=== PATIENT | female | born 1985 | race Caucasian/White ===

== ENCOUNTER 2018-03-11 20:40 | Inpatient (IN) ==
[2018-03-11 22:53] LABS: Baso # (Auto) 0.1 th/mm3 (0.0-0.2); Baso % (Auto) 0.4 % (0.0-2.0); Eos # (Auto) 0.1 th/mm3 (0.0-0.4); Eos % (Auto) 0.5 % (0.0-4.0); Hematocrit 36.5 % (35.0-46.0); Hemoglobin 12.5 gm/dL (11.6-15.3); Lymph # (Auto) 2.9 th/mm3 (1.0-4.8); Lymph % (Auto) 22.4 % (9.0-44.0); Mean Corpuscular HGB Conc 34.2 % (32.0-36.0); Mean Corpuscular Hemoglobin 29.8 pg (27.0-34.0); Mean Corpuscular Volume 87.3 fL (80.0-100.0); Mean Platelet Volume 9.2 fL (7.0-11.0); Mono # (Auto) 1.1 th/mm3 (0.0-0.9); Mono % (Auto) 8.8 % (0.0-8.0); Neut # (Auto) 8.8 th/mm3 (1.8-7.7); Neut % (Auto) 67.9 % (16.0-70.0); Platelet Count 215 th/mm3 (150-450); Red Blood Count 4.18 mil/mm3 (4.00-5.30); Red Cell Distribution Width 13.8 % (11.6-17.2)
[2018-03-11] MEDS ORDERED: Sod Chloride 0.9% Inj 1,000 ML IRRIGATION PRN (22:53)
[2018-03-11] MEDS ORDERED: Zolpidem Tartrate 5 MG Tablet PO PRN (23:11)
[2018-03-11] MEDS ORDERED: fentaNYL Citrate Inj 100 MCG/2 ML Ampul IV.PUSH PRN ×2 (23:12)
[2018-03-11] MEDS ORDERED: Naloxone Inj 0.4 MG/ML Vial IV.PUSH PRN (23:12)
[2018-03-11] MEDS ORDERED: Oxytocin 30 Units/500ml Premix 30 UNITS/500 ML BAG IV.SIG ONE (23:12)
[2018-03-11] MEDS ORDERED: Sodium Chlor 0.9% Inj 500 ML IV.SIG PRN (23:12)
[2018-03-11] MEDS ORDERED: Sod Chloride 0.9% Inj 1,000 ML IV.CONT PRN (23:12)
[2018-03-11 23:14] LABS: Amphetamine Urine With Conf Neg (Neg); Benzodiazepine Urine With Conf Neg (Neg)
[2018-03-11] MEDS ORDERED: Citric Acid/Sodium Citrate Liq 30 ML UDC PO SCH (23:15)
[2018-03-11 23:25] LABS: Bilirubin,Urine Negative (Negative); Clarity,Urine Clear (Clear); Color,Urine Yellow (Yellw/Straw); Glucose,Urine (UA) Negative (Negative); Leukocyte Esterase,Urine Negative (Negative); Mucus,Urine Few /lpf (Occasional); Nitrite,Urine Negative (Negative); Specific Gravity,Urine 1.012 (1.002-1.035); Squamous Epithelial Cell,Urine 1 /hpf (0-5)
--- NOTE | 2018-03-12 06:57 | P.OBGPN ---
S: Doing well, pain with contractions, no vaginal bleeding or loss of fluid. O: VS: Exam: /-3, AROM, clear fluid. FHTs: 120s, moderate variability, accelerations present, no decelerations TOCO: Contractions every 3-5 minutes A/P 32 yo at 39w2d by L/19w US (TAVIA 03/17/18) here for IOL for logisical reasons due to remoteness from hospital and concern for IUGR. 1. IUP: Category 1 tracing. Continuous monitoring -Cephalic, GBS negative, placenta posterior. - Female "Gaby" 2. Induction of labor: Received 1 dose of PV Miso, AROM this check, Pitocin as needed, anticipate vaginal delivery. 3. IUGR??: EFW on 02/15 = total EFW of 24% and AC of 4%, today (03/01) EFW = 2852g (37%) AC 8%, Normal UA dop - based on logistics of patient's living situation and childcare issues and concerns for IUGR plan was made for IOL. 4. Rh neg: s/p Rhogam around 28 weeks, 12/25/17. Per protocol . 5. HSIL pap: (10/24/17), colpo on w/ bx at 5 oclock on 11/06 = ABE 2-3, plan for either LEEP or repeat colpo at 6w PP 6. H/O Hep C: s/p treatment.
[2018-03-12] MEDS ORDERED: Oxytocin 30 Units/500ml Premix 30 UNITS/500 ML BAG IV.SIG PRN (06:58)
[2018-03-12] MEDS ORDERED: fentaNYL Citrate Inj 100 MCG/2 ML Ampul EPIDURAL ONE (09:00)
[2018-03-12] MEDS ORDERED: Prenatal Vit/Ca/Iron/Folic Acid Tablet PO SCH (09:00)
[2018-03-12] MEDS ORDERED: fentaNYL 2MCG-Bupiv 0.125% Epi 150 ML EPIDURAL PRN (09:00)
[2018-03-12] MEDS ORDERED: Naloxone Inj 0.4 MG/ML Vial IV.PUSH PRN (14:18)
[2018-03-12] MEDS ORDERED: Benzocaine 20% Top Spray 60 ML Can TOPICAL PRN (14:18)
[2018-03-12] MEDS ORDERED: Witch Hazel 50%/Glyderin 12.5% 40 Pad Jar RECTAL PRN (14:18)
[2018-03-12] MEDS ORDERED: Bisacodyl 10 MG Supp RECTAL PRN (14:18)
[2018-03-12] MEDS ORDERED: Zolpidem Tartrate 5 MG Tablet PO PRN (14:18)
--- NOTE | 2018-03-12 14:28 | P.OBDELI ---
Additional Information: Preoperative diagnosis: 1. Intrauterine 39 weeks and 2 days 2. growth restriction 3. Rh- status Postop diagnosis 1. Same as above status post delivery Procedure 1. Term spontaneous vaginal delivery Surgeon Dr. Luís Carlson Ironing Pleater: [facility] labor and delivery nursing staff Findings: 1. Viable female at 2:04 PM, normal anatomy. Nuchal cord 2 reduced at perineum. Apgars 9 and 9. New born weight 3135g. 2. Intact placenta, three-vessel cord, peripheral cord insertion at 2:08 PM 3. Intact perineum vagina and cervix Anesthesia: Epidural Specimen: Placenta to disposal Estimated blood loss: Less than 500 cc Fluid replacement: Lactated Ringer's and Pitocin Urine output: None recorded DVT prophylaxis: None Antibiotics: None recorded Counts: correct x2 Time out done: yes Disposition: Stable to Indications: Patient is a 0-2 now P3 0-3 who presented for an induction of labor secondary to suspected growth restriction, she received 1 dose of vaginal misoprostol, her water was artificially ruptured and progressed to complete with reassuring heart tones. I was called to the room and she was found to be complete. Description of procedure: The patient began pushing after the bed was broken down, the head upon was allowed to restitute naturally for delivery with a supported perineum, there is a nuchal cord 2 that was reduced at the perineum, with gentle downward guidance the anterior shoulder was delivered followed by gentle upper guidance for the posterior shoulder, the torso and lower extremities were delivered with ease and with continued perineal support. The infant had spontaneous cry and was placed on mom's abdomen for skin to skin contact, we allowed delayed cord clamping. After the cord was clamped and cut, cord blood was obtained. Pitocin was bolused and with fundal massage the placenta was delivered, there is minimal uterine bleeding and uterus was firm. The perineum, vagina and cervix were inspected and found intact. The patient tolerated the procedure well and was left in the birthing suite with her .
[2018-03-12] MEDS ORDERED: Oxytocin 30 Units/500ml Premix 30 UNITS/500 ML BAG IV.CONT SCH (14:30)
[2018-03-12] MEDS ORDERED: Rho Immune Globulin Inj 1,500 UNIT/1.3 ML Vial IM ONE (16:00)
[2018-03-12] MEDS ORDERED: Measles/Mumps/Rubella Vaccine Inj 0.5 ML Vial SQ ONE (16:00)
[2018-03-12] MEDS ORDERED: Diphtheria/Tetanus/Pertussis Vaccine Inj 0.5 ML Syringe IM ONE (16:00)
[2018-03-12] MEDS: Senna/Docusate Sodium 8.6/50 MG Tablet PO SCH ×2 (21:05→21:26)
[2018-03-12] MEDS: Ibuprofen 400 MG Tablet PO PRN ×2 (21:05→21:26)
[2018-03-12] MEDS: Acetaminophen 325 MG Tablet PO PRN ×2 (21:06→21:26)
[2018-03-12 21:08] VITALS: RESP 18
--- NOTE | 2018-03-13 08:32 | P.PNOB ---
Subjective Post day: 1 Interval history: doing well but c/o feeling bloated, has not had BM, requests stool softener this AM; , cramps manageable, no heavy bleeding overnight Objective Vital Signs/I&O: Vital Signs 03/12/18 09:00 03/12/18 09:05 03/12/18 09:20 Temperature Pulse Rate 71 92 H 81 Respiratory Rate 18 Blood Pressure 113/68 120/81 118/75 03/12/18 09:25 03/12/18 10:01 03/12/18 10:30 Temperature 98.6 F Pulse Rate 83 74 81 Respiratory Rate 18 18 18 Blood Pressure 123/76 140/73 03/12/18 10:58 03/12/18 11:00 03/12/18 11:15 Temperature Pulse Rate 71 74 77 Respiratory Rate 18 Blood Pressure 121/73 122/72 115/74 03/12/18 11:30 03/12/18 12:00 03/12/18 12:15 Temperature Pulse Rate 81 76 Respiratory Rate 18 18 Blood Pressure 118/65 122/78 03/12/18 12:24 03/12/18 12:31 03/12/18 12:46 Temperature 98.5 F Pulse Rate 78 79 Respiratory Rate 18 Blood Pressure 122/76 120/54 L 03/12/18 13:15 03/12/18 13:30 03/12/18 13:45 Temperature Pulse Rate 76 73 81 Respiratory Rate 18 18 Blood Pressure 122/80 122/77 141/81 H 03/12/18 13:59 03/12/18 14:01 03/12/18 14:15 Temperature Pulse Rate 80 Respiratory Rate 18 18 Blood Pressure 130/91 H 03/12/18 14:30 03/12/18 14:36 03/12/18 14:45 Temperature 97.5 F L Pulse Rate 75 Respiratory Rate 18 18 Blood Pressure 114/76 03/12/18 14:46 03/12/18 15:15 03/12/18 15:30 Temperature Pulse Rate 95 H 74 78 Respiratory Rate 18 Blood Pressure 123/77 120/76 115/82 03/12/18 15:59 03/12/18 16:15 03/12/18 16:23 Temperature Pulse Rate 80 77 Respiratory Rate 18 18 Blood Pressure 113/67 122/76 03/12/18 16:57 03/12/18 18:00 03/12/18 20:00 Temperature 97.7 F 98.4 F Pulse Rate 79 77 74 Respiratory Rate 16 18 Blood Pressure 114/70 126/70 120/75 Intake & Output 03/12/18 03/13/18 03/13/18 18:59 06:59 18:59 Intake Total 1000 / 1000 Balance 1000 / 1000 Intake: IV 1000 / 1000 LR 1000 mL Inj 1,000 ML @ 125 1000 / 1000 mls/hr IV.SIG .Q8H [facility] Rx#: [id number] Result Diagrams: 03/11/18 22:10 Objective Remarks: GENERAL: Well-nourished, well-developed patient. CARDIOVASCULAR: Regular rate and rhythm without murmurs, gallops, or rubs. RESPIRATORY: Breath sounds equal bilaterally. No accessory muscle use. ABDOMEN/GI: Abdomen soft, non-tender. Fundus: Firm, non-tender at umbilicus. GENITOURINARY: Light to moderate bleeding. EXTREMITIES: No cyanosis or edema, non-tender, without signs of DVT. Medications and IVs: Active Medications Acetaminophen (Tylenol) 650 mg PO Q4H PRN PRN Reason: PAIN SCALE 1 TO 2 Last Admin: 03/12/18 21:26 Dose: 650 mg Al Hydroxide/Mg Hydroxide (Milk Of Magnesia Liq) 30 ml PO Q12H PRN PRN Reason: Mild Constipation Benzocaine (Americaine 20% Top [place]) 1 spray TOPICAL Q4H PRN PRN Reason: For Perineum Discomfort Bisacodyl (Dulcolax Supp) 10 mg RECTAL DAILY PRN PRN Reason: SEVERE CONSITIPATION Ibuprofen (Motrin) 800 mg PO Q8H PRN PRN Reason: For cramping Last Admin: 03/12/18 21:26 Dose: 800 mg Lactulose (Lactulose Liq) 30 ml PO DAILY PRN PRN Reason: SEVERE CONSITIPATION Naloxone HCl (Narcan Inj) 0.1 mg IV.PUSH Q2M PRN PRN Reason: for opiate reversal Ondansetron HCl (Zofran Odt) 4 mg PO Q6H PRN PRN Reason: NAUSEA OR VOMITING Oxycodone/Acetaminophen (Percocet 5/325 Mg) 1 tab PO Q4H PRN PRN Reason: PAIN SCALE 3 TO 5 Last Admin: 03/13/18 03:27 Dose: 1 tab Oxycodone/Acetaminophen (Percocet 5/325 Mg) 2 tab PO Q4H PRN PRN Reason: PAIN SCALE 6 TO 10 Senna/Docusate Sodium (Alison-Colace) 1 tab PO BID [facility] Last Admin: 03/12/18 21:26 Dose: 1 tab Sennosides (Senokot) 17.2 mg PO Q12H PRN PRN Reason: Moderate Constipation Sodium Chloride (Ns Flush) 2 ml IV.FLUSH BID [facility] Last Admin: 03/12/18 21:07 Dose: 2 ml Sodium Chloride (Ns Flush) 2 ml IV.FLUSH PRN PRN PRN Reason: FLUSH AFTER USING IV ACCESS Witch Lizeth/Glycerin (Tucks Pads) 1 applicatio RECTAL QID PRN PRN Reason: HEMORRHOIDS Zolpidem Tartrate (Ambien) 5 mg PO HS PRN PRN Reason: SLEEP Assessment and Plan - Diagnosis (1) (spontaneous vaginal delivery) Code(s): O80 - Encounter for full-term uncomplicated delivery Status: Acute - Plan PPD#1 - routine supportive care, if infant able to be discharged this evening ok to d/c pt as well; will send home w Rx motrin & pericolace Discharge Planning: routine
[2018-03-13] MEDS: Ibuprofen 400 MG Tablet PO PRN (09:06)
[2018-03-13] MEDS: Senna/Docusate Sodium 8.6/50 MG Tablet PO SCH (09:07)
[2018-03-13 09:36] VITALS: BP 117/75; TEMP 97.8; O2SAT 98
--- NOTE | 2018-03-13 11:54 | MH ---
cc: Luís Carlson MD DATE OF ADMISSION: 03/11/2018 CHIEF COMPLAINT: Induction of labor. HISTORY OF PRESENT ILLNESS: This patient is a 32-year-old G5, P2-0-2-2, admitted for induction of labor secondary to suspected growth restriction. Any addition to her history and physical will be added as an addendum or a separate note. Her has been complicated by Rh negative status, history of hepatitis status post treatment, ABE 2-3 diagnosed during the and growth restriction. PAST MEDICAL HISTORY: history of hepatitis C, status post treatment. MEDICATIONS: vitamins. ALLERGIES: AMOXICILLIN. PAST SURGICAL HISTORY: None. FAMILY HISTORY: No pertinent positive family history. OBSTETRICAL HISTORY: 1. November 2016, 42 week female infant weighing 7 pounds 8 ounces in [place]. 2. June 2016, 41 weeks, male , 8 pounds 7 ounces in [place], [place]. 3. 2009 - 8 week SAB. 4. Missed in 2014. CALCULATOR OPERATOR HISTORY: LMP 06/10/2017, history of STDs the patient denies. SOCIAL HISTORY: Denies tobacco, alcohol or drug use. PHYSICAL EXAMINATION: Performed on 03/08/2018. VITAL SIGNS: Weight 188 pounds, blood pressure 120/60. GENERAL: Alert and oriented x3, resting comfortably in bed, in no acute distress. CARDIAC: Regular rate and rhythm. No murmurs, rubs or gallops. PULMONARY: Lungs are clear to auscultation bilaterally. No wheezes, crackles or rhonchi. ABDOMEN: Soft, gravid, nontender. GENITOURINARY: Cervix 2-3 cm, 50% effaced and -3. EXTREMITIES: No clubbing, cyanosis or edema. LABS: 09/10/2017: Blood type A negative, antibody negative. Hemoglobin 13.0. Varicella immune, rubella immune, VDRL nonreactive. Hepatitis B surface antigen nonreactive, HIV negative. Hemoglobin A1c 5.1. Gonorrhea and chlamydia negative. Cystic fibrosis screen negative, quad screen negative. Repeat labs on 12/19/2017: Hemoglobin 12.9. One-hour glucose 75. Group B strep negative. ASSESSMENT AND PLAN: This patient is a 32-year-old G5, P2-0-2-2, who will be at 39 weeks and one day at the time of her admission with estimated due date of 03/17/2018 by her LMP consistent with a week ultrasound: 1. Intrauterine . Will be placed on continuous monitoring. 2 - cephalic by ultrasound 03/08/2018, GBS negative. Female fetus. Posterior placenta. 3. Induction of labor secondary to #3. De Jesus score unfavorable. Will place PV miso. Understands the risk of induction of labor. 4. growth restriction?: Growth performed for size less than dates. Estimated weight on 02/15/2018 measuring 24% overall with AC in the 4th percentile, on 03/01/2018 was 2852 grams in the 37th percentile with abdominal circumference in the 8th percentile. Normal testing. Most recent on seen DESTIN of 12.6, normal uterine artery Dopplers in cephalic position. Based on concern and logistical reasons due to the patient's living situation, plan was made for induction of labor today. 5. History of hepatitis C: She is status post treatment outside of . 6. Rh negative, status post RhoGAM on 12/25/2017. RhoGAM per protocol . 7. ABE 2-3 on biopsy at 5 o'clock on 11/06/2017 during the . LEEP or colposcopy at 6 weeks visit. MD HAMILTON [place]ace/ , 08:13 PM , 08:24 PM EDUAR
[2018-03-13 13:15] VITALS: PULSE 98
[2018-03-13] MEDS: Acetaminophen 325 MG Tablet PO PRN (15:07)
--- NOTE | 2018-03-13 16:04 | P.DS ---
Date of admission: 03/11/18 20:40 Primary care physician: NOT REQUIRED Attending physician on discharge: Yasemin uKmar Anticipated date of discharge: 03/13/18 Brief History from admission: Admission diagnosis: 1. Intrauterine 39 weeks and 2 days 2. growth restriction 3. Rh- status DS: Diagnosis - Discharge Diagnosis (1) (spontaneous vaginal delivery) Status: Acute DS: Medications - Discharge Medications Prescriptions: ibuprofen [Motrin IB] 600 mg PO TID-QID PRN #30 tab PRN Reason: Pain sennosides-docusate sodium [Senna Plus] 1 tab PO BID PRN 10 Days #20 tab PRN Reason: Constipation DS: Summary Hospital Course: Admission diagnosis: 1. Intrauterine 39 weeks and 2 days 2. growth restriction 3. Rh- status Discharge diagnosis: 1. Same as above, status post delivery, day #1 Procedure 1. Term spontaneous vaginal delivery Delivering Physician Dr. Luís Carlson Findings: 1. Viable female infant delivered vaginally on 03/12/18 at 2:04 PM, normal anatomy. Nuchal cord 2 reduced at perineum. Apgars 9 and 9. New born weight 3135g. 2. Intact placenta, three-vessel cord, peripheral cord insertion at 2:08 PM 3. Intact perineum vagina and cervix Patient did well PPD#0 and PPD#1, meeting all criteria, discharged to home. - Time Spent with Patient Total time spent providing and/or coordinating discharge services: Greater than 30 minutes Exam Vital signs: Vital Signs 03/12/18 16:15 03/12/18 16:23 03/12/18 16:57 Temperature Pulse Rate 77 79 Respiratory Rate 18 18 Blood Pressure 122/76 114/70 Pulse Oximetry 03/12/18 18:00 03/12/18 20:00 03/13/18 08:00 Temperature 97.7 F 98.4 F 97.8 F Pulse Rate 77 74 98 H Respiratory Rate 16 18 18 Blood Pressure 126/70 120/75 117/75 Pulse Oximetry 98 Intake & Output 03/12/18 03/13/18 03/13/18 18:59 06:59 18:59 Intake Total 1000 / 1000 Balance 1000 / 1000 Intake: IV 1000 / 1000 LR 1000 mL Inj 1,000 ML @ 125 1000 / 1000 mls/hr IV.SIG .Q8H [facility] Rx#: [id number] - Constitutional no acute distress - Routine HEENT Exam Head: Present: normocephalic, atraumatic Eye: Present: EOMI ENT: Present: mucous membranes moist - Routine Neck Exam Present: supple - Routine Chest/Breast/Axilla Exam Chest wall: Absent: tenderness, mass - Routine Respiratory Exam Absent: accessory muscle use, decreased breath sounds - Routine Cardiovascular Exam Present: RRR. Absent: bradycardia - Routine Abdominal Exam Present: soft. Absent: tenderness - Routine Extremities Exam Absent: cyanosis, edema - Routine Skin Exam Present: intact. Absent: erythema - Routine Neurological Exam Present: alert, oriented X3 Results Procedures completed during hospitalization: vaginal delivery Labs on day of discharge: Labs from last 24 hours 03/13/18 03/12/18 03/11/18 11:10 22:10 22:10 Blood Type A Negative A Negative Antibody Screen Positive H Ab Screen Tube Method Negative Antibody Identification Passive Anti-D due to Rhogam Rout Panel [facility] Comment 03/11/18 22:10 Blood Type A Negative Antibody Screen ND Ab Screen Tube Method Antibody Identification Rout Panel [facility] Comment Discharge Plan - Discharge Disposition Patient Disposition: Discharge Home - Discharge Condition Condition: Good - Discharge Order Discharge Orders: Discharge Order (Routine); Ordered 03/13/18 Ordered By: Luís Carlson - Discharge Details Anticipated Discharge Date: 03/13/18 - Physicians Team Primary Care Provider: NOT REQUIRED, Attending Provider: Luís Carlson - Rxs /Orders / Referrals /Forms Prescriptions: New ibuprofen [Motrin IB] 200 mg Tablet 600 mg PO TID-QID PRN (Reason: Pain) Qty: 30 RF: 1 sennosides-docusate sodium [Senna Plus] 8.6-50 mg Tablet 1 tab PO BID PRN (Reason: Constipation) 10 Days Qty: 20 RF: 0 Discontinued tablet 1 tab PO DAILY Referrals: Luís Carlson MD [Physician] - See Instructions (Call to make 2 week follow-up visit) - Discharge Instructions Additional Instructions: Call to make 2 week follow-up visit - Post Discharge Care Plan Care Plan Goals: Congratulations on your new baby! We want your recovery to be valerio and trouble free. Please Report the Following Symptoms to Your Doctor: -Temperature above 100.5 degrees -Unusual pain or calf pain -Increased vaginal bleeding -Painful or difficulty urinating -Feelings of extreme sadness or anxiety Goals to Promote Your Health * To prevent worsening of your condition and complications * To maintain your health at the optimal level Directions to Meet Your Goals Take your medications as prescribed Follow your dietary instruction Follow activity as directed Ensure plenty of rest for recovery Drink fluids for hydration Keep your appointments as scheduled Take your immunizations and boosters as scheduled If your symptoms worsen call your OB Physician, or go to an Urgent Care Center or Emergency Room Smoking is Dangerous to your health. Avoid second hand smoke Call the 24-hour crisis hotline for domestic abuse at
== END 2018-03-13 17:30 | disposition home or self-care (01) ==
LOC: H2E 20:40 → H1EA 03-12 17:36
PROVIDERS: ADMIT Obstetrics & Gynecology; ATTEND Obstetrics & Gynecology